=== PATIENT | female | born 2000 | race Two or more races ===

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

== ENCOUNTER 2024-11-22 05:27 | Emergency (ER) | payer MEDICAID ==
[~2024-11-22] VITALS: Ht 152.4 cm; Wt 67.9 kg
[~2024-11-22 05:27] MED LIST: NITR-87 PO; ONDA-144 PO
[2024-11-22 05:52] VITALS: BP 155/92; PULSE 108; RESP 16; O2SAT 97
== END 2024-11-22 07:04 | disposition left against medical advice (07) ==
LOC: ER 05:27
DX: R11.2 Nausea with vomiting, unspecified (principal); Z53.21 Procedure and treatment not carried out due to patient leaving prior to being seen by health care provider